=== PATIENT | female | born 1950 | race Caucasian/White ===

== ENCOUNTER 2020-12-13 21:10 | Emergency (ER) | payer MEDICARE, BC ==
[2020-12-13] MEDS ORDERED: Enoxaparin 100 MG/1 ML Syringe SUBCUT STA (22:53)
--- NOTE | 2020-12-13 23:03 | EDM.PDOC ---
ED HPI GENERAL MEDICAL PROBLEM - General Chief Complaint: Lower Extremity Injury/Pain Stated Complaint: right leg redness and swelling Time Seen by Provider: 12/13/20 21:45 Source of Information: Reports: Patient History Limitations: Reports: No Limitations - History of Present Illness INITIAL COMMENTS - FREE TEXT/NARRATIVE: Patient presented to the Ed because of a RLE pain and swelling. She was seen at [facility] and diagnosed with reactive arthritis. There is no fever,chills, cough and cold symptoms. - Related Data Allergies Allergy/AdvReac Type Severity Reaction Status Date / Time No Known Allergies Allergy Verified 12/13/20 21:55 Home Meds: Home Meds Cholecalciferol (Vitamin D3) [Vitamin D] 1 tab PO DAILY 10/23/14 [History] Raloxifene [Evista] 60 mg DAILY 10/23/14 [History] Tolterodine Tartrate [Tolterodine Tartrate ER] 4 mg PO DAILY 10/23/14 [History] Past Medical History - Past Health History Medical/Surgical History: Denies Medical/Surgical History Review of Systems - Review of Systems Review Of Systems: See Below Constitutional: Reports: No Symptoms Ears: Reports: No Symptoms Nose: Reports: No Symptoms Mouth/Throat: Reports: No Symptoms Respiratory: Reports: No Symptoms Cardiovascular: Reports: No Symptoms GI/Abdominal: Reports: No Symptoms Genitourinary: Reports: No Symptoms Musculoskeletal: Reports: No Symptoms Skin: Reports: No Symptoms Neurological: Reports: No Symptoms Psychiatric: Reports: No Symptoms ED EXAM, GENERAL - Physical Exam Exam: See Below Exam Limited By: No Limitations General Appearance: Alert, No Apparent Distress Ears: Normal External Exam, Normal Canal Nose: Normal Inspection, Normal Mucosa, No Blood Throat/Mouth: Normal Inspection, Normal Lips Head: Atraumatic, Normocephalic Neck: Normal Inspection, Supple, Non-Tender, Full Range of Motion Respiratory/Chest: No Respiratory Distress, Lungs Clear, Normal Breath Sounds Cardiovascular: Normal Peripheral Pulses, Regular Rate, Rhythm, No Edema, No Gallop GI/Abdominal: Normal Bowel Sounds, Soft, Non-Tender, No Organomegaly Back Exam: Normal Inspection, Full Range of Motion Extremities: Normal Inspection, Normal Range of Motion, Other (tenderness over the calf area) Neurological: Alert, Oriented, CN II-XII Intact Course - Vital Signs Text/Narrative:: [id number] Scheduled to have a RLE US on sunday Lovenox 110 mg SC x1 Last Recorded V/S: Last Vital Signs Temp 36.7 C 12/13/20 21:40 Pulse 92 12/13/20 21:40 Resp 16 12/13/20 21:40 BP 151/76 H 12/13/20 21:40 Pulse Ox 97 12/13/20 21:40 - Orders/Labs/Meds Labs: Laboratory Tests 12/13/20 12/13/20 Range/Units 21:26 21:26 WBC 17.2 H (3.0-10.3) x10-3/uL RBC 4.32 (3.60-5.20) x10(6)uL Hgb 11.6 (11.4-15.5) g/dL Hct 36.8 (34.2-48.2) % MCV 85.2 (76.7-100.5) fL MCH 26.8 (23.9-33.9) pg MCHC 31.4 L (31.9-34.8) g/dL RDW 14.4 (12.3-16.5) % Plt Count 463 (151-488) x10(3)uL MPV 6.8 L (7.1-12.4) fL Add Manual Diff Yes Neutrophils % (Manual) 90 H (46-82) % Band Neutrophils % 1 (0-6) % Lymphocytes % (Manual) 7 L (13-37) % Monocytes % (Manual) 2 L (4-12) % Hypersegmented Neuts Few D-Dimer, Quantitative 4.01 H (0.0-0.59) mg/LFEU Meds: Medications Discontinued Medications Generic Name Dose Route Start Last Admin Trade Name Gladis PRN Reason Stop Dose Admin Enoxaparin Sodium 110 mg 12/13/20 22:53 12/13/20 23:10 Lovenox SUBCUT 12/13/20 22:54 110 mg NOW STA Administration Enoxaparin Sodium Confirm 12/13/20 23:12 Lovenox Administered 12/13/20 23:13 Dose 30 mg .ROUTE .STK-MED ONE Departure - Departure Time of Disposition: 22:55 Disposition: Home, Self-Care 01 Condition: Good Clinical Impression: Leg pain, Elevated d-dimer - Discharge Information Instructions: D-Dimer Test Referrals: PCP,None [Primary Care Provider] - Forms: ED Department Discharge Additional Instructions: Please read discharge instructions on leg pain and elevated d-dimer Return to the ED tomorrow at 10 pm so you can have the second dose of lovenox to prevent you from having another blood clot If you decided to have the ultrasound done here it will be this Sunday at 2:30 pm Sepsis Event Note (ED) - Evaluation Sepsis Screening Result: No Definite Risk - Focused Exam Vital Signs: Vital Signs Temp Pulse Resp BP Pulse Ox 12/13/20 21:40 36.7 C 92 16 151/76 H 97
[2020-12-13] MEDS ORDERED: Enoxaparin 100 MG/1 ML Syringe SUBCUT ONE (23:10)
[2020-12-13] MEDS ORDERED: Enoxaparin 30 MG/0.3 ML Syringe ONE (23:12)
== END 2020-12-13 23:25 | disposition home or self-care (01) ==
LOC: FB.ED 21:10
DX: M79.661 Pain in right lower leg (principal); R79.1 Abnormal coagulation profile
CPT/HCPCS: 36415; 85025; 85379; 96372; 99283; J1650